=== PATIENT | female | born 1950 | race Caucasian/White ===

== ENCOUNTER → 2018-06-05 | Outpatient (CLI) | payer OTHER ==
[~2018-06-05] MED LIST: NORCO 5-325 TA1 EACH PO; VITAMIN D1000 UNI1 PO
== END ==
LOC: M.RAD 10:47
DX: Z12.31 Encounter for screening mammogram for malignant neoplasm of breast (principal)

== ENCOUNTER → 2019-06-25 | Outpatient (CLI) | payer OTHER | LOC: M.RAD 13:58 | DX: M81.0 Age-related osteoporosis without current pathological fracture (principal) ==